=== PATIENT | female | born 1955 | race Caucasian/White ===

== ENCOUNTER 2017-06-28 12:48 | Emergency (ER) | payer MEDICAID ==
[~2017-06-28] VITALS: Ht 167.6 cm; Wt 83.0 kg
[~2017-06-28 12:48] MED LIST: NAPR500 PO; SYMB160A INH; XANA0.5T PO
[2017-06-28 12:57] VITALS: BP 125/76; PULSE 97; RESP 16; TEMP 98; O2SAT 98
[2017-06-28] MEDS ORDERED: ALPR.5 PO (13:12)
[2017-06-28] MEDS ORDERED: METF500T PO (13:12)
[2017-06-28] MEDS ORDERED: SYMB80AE INH (13:12)
[2017-06-28] MEDS ORDERED: ALBU1AER5 INH (13:12)
[2017-06-28] MEDS ORDERED: SUMA50TA2 PO (13:12)
--- NOTE | 2017-06-28 14:33 | PD ---
HPI . Left eyelid swelling Chief Complaint: Skin Problem Time Seen by Provider: 13:54 Travel History International Travel<30 days: No Contact w/Intl Traveler<30days: No Traveled to known affect area: No History of Present Illness HPI 62-year-old female presents emergency department for evaluation of a left eyelid swelling and irritation 6 days. Patient states she has been using warm moist heat to the area. The problem is persistent now. Patient denies any visual disturbances with this problem. Patient's only major medical history of asthma and diabetes. She takes metformin, Xanax and Pro Air daily. Patient denies any fevers, chills, malaise, shortness breath, chest pain, nausea, vomiting, diarrhea, abdominal pain. PFSH Past Medical History Asthma: Yes Anxiety: Yes Cancer: Yes (uterine cancer hx) Diabetes: Yes Patient Takes Glucophage: No Diminished Hearing: No Respiratory: Yes (ASTHMA) Migraines: Yes Tetanus Vaccination: Unknown Influenza Vaccination: Yes ?: Not Past Surgical History Abdominal Surgery: Yes (hernia repair) Gynecologic Surgery: Yes (cervix cryo) Hysterectomy: Yes Social History Alcohol Use: Yes (occ) Tobacco Use: No Substance Use: No Allergies-Medications (Allergen,Severity, Reaction): Coded Allergies: iodine (Unverified Allergy, Severe, CARDIAC ARREST, 06/28/17) penicillin G (Unverified Allergy, Severe, SOB, 06/28/17) potassium iodide (Unverified Allergy, Severe, CARDIAC ARREST, 06/28/17) povidone-iodine (Unverified Allergy, Severe, CARDIAC ARREST, 06/28/17) sodium iodide (Unverified Allergy, Severe, CARDIAC ARREST, 06/28/17) sodium iodide (Unverified Allergy, Severe, CARDIAC ARREST, 06/28/17) Reported Meds & Prescriptions Reported Meds & Active Scripts Active Reported Symbicort Inh (Budesonide/Formoterol Fumarate) 80-4.5 Mcg/Act Aero 2 Puff INH Q12HR Sumatriptan (Sumatriptan Succinate) 50 Mg Tab 50 Mg PO ONCE PRN If a satisfactory response has not been obtained at 2 hours, a second dose may be administered Proair Respiclick Inh (Albuterol Sulfate) 90 Mcg/Act Aerp 2 Puff INH Q6H PRN Metformin (Metformin HCl) 500 Mg Tab 500 Mg PO BIDPC Xanax (Alprazolam) 0.5 Mg Tab 0.5 Mg PO Q6H PRN Review of Systems Except as stated in HPI: all other systems reviewed are Neg Physical Exam Narrative GENERAL: Well-nourished, well-developed 62-year-old female patient in no acute distress. Nontoxic-appearing. SKIN: Focused skin assessment warm/dry. HEAD: Normocephalic. Traumatic. EYES: Mild erythema and edema noted to the medial aspect of the left upper eyelid. No scleral icterus. No injection or drainage. No visual disturbances. NECK: Supple, trachea midline. No JVD or lymphadenopathy. CARDIOVASCULAR: Regular rate and rhythm without murmurs, gallops, or rubs. RESPIRATORY: Breath sounds equal bilaterally. No accessory muscle use. GASTROINTESTINAL: Abdomen soft, non-tender, nondistended. MUSCULOSKELETAL: No cyanosis, or edema. Data Data Last Documented VS Vital Signs Date Time Temp Pulse Resp B/P (MAP) Pulse Ox O2 Delivery O2 Flow Rate FiO2 06/28/17 12:57 98.0 97 16 125/76 (92) 98 Orders Orders Ed Discharge Order (06/28/17 14:33) MDM Medical Decision Making Medical Screen Exam Complete: Yes Emergency Medical Condition: Yes Differential Diagnosis Differential diagnoses include but not limited to hordeolum, chalazion, blepharitis Narrative Course 62-year-old female presents to the emergency department for evaluation of left upper eyelid mild redness and edema that is described as painful irritation. Patient denies any fevers, chills, malaise, shortness breath, chest pain, visual disturbances. States that she has had this area of irritation for 6 days. Patient is been using warm moist compresses. The area of erythema and edema is very mild and localized. Patient reassured that this condition is usually self-limiting and to continue using the warm moist compresses and she can also use ibuprofen to help with the pain and swelling. Patient given an ibuprofen at our facility. Patient discharged home with instructions to follow up with cash van salesperson if the symptoms persist but otherwise return to the emergency Department with any worsening condition. Patient's understands and is thankful for care. Diagnosis Primary Impression: Hordeolum externum left upper eyelid Referrals: [facility] Patient Instructions: General Instructions, Marlena (ED) Additional Instructions: Please return to emergency department if your symptoms return or worsen. Follow up with your primary care provider. Follow-up with cash van salesperson if symptoms persist. May take ibuprofen to help reduce swelling Warm moist compresses to area Disposition: 01 DISCHARGE HOME Condition: Stable Kayla Tinoco Jun 28, 2017 14:33
== END 2017-06-28 15:06 | disposition home or self-care (01) ==
LOC: PHEFT 12:48
DX: H00.014 Hordeolum externum left upper eyelid (principal); E11.9 Type 2 diabetes mellitus without complications; Z79.84 Long term (current) use of oral hypoglycemic drugs
CPT/HCPCS: 99282

== ENCOUNTER 2017-07-23 11:33 | Emergency (ER) | payer MEDICAID ==
[~2017-07-23] VITALS: Ht 167.6 cm; Wt 80.0 kg
[~2017-07-23 11:33] MED LIST changes: +ALBU1AER5 INH; +ALPR.5 PO; +METF500T PO; -NAPR500 PO; +SUMA50TA2 PO; -SYMB160A INH; +SYMB80AE INH; -XANA0.5T PO
[2017-07-23 11:34] VITALS: BP 124/69; PULSE 87; RESP 18; TEMP 98.2; O2SAT 97
--- NOTE | 2017-07-23 12:49 | PD ---
HPI Chief Complaint: Pain: Acute or Chronic Time Seen by Provider: 12:37 Travel History International Travel<30 days: No Contact w/Intl Traveler<30days: No Traveled to known affect area: No History of Present Illness HPI [id number] female presents to emergency Department with complaint of left groin pain 6 months with worsening times one month and much more worsening times one week. Denies injury or heavy lifting. He radiates down the left leg to the thigh area. Has history of hernia repair bilaterally. Denies dysuria, change in stool, fever, vomiting, abdominal pain. Has been taking ibuprofen for symptom management. Pain is worse with walking, bending over, moving. Rates pain 6/10. Describes pain as a throbbing and burning sensation. Primary care provider is Dr. Victor in [place]. Allergies to penicillin and iodine. History of asthma and diabetes mellitus. No other medical complaints. No other modifying factors or associated signs and symptoms. PFSH Past Medical History Asthma: Yes Anxiety: Yes Cancer: Yes (uterine cancer hx) Diabetes: Yes Diminished Hearing: No Respiratory: Yes Migraines: Yes Past Surgical History Abdominal Surgery: Yes (hernia repair) Gynecologic Surgery: Yes (cervix cryo) Hysterectomy: Yes Social History Alcohol Use: Yes (occ) Tobacco Use: No Substance Use: No Allergies-Medications (Allergen,Severity, Reaction): Coded Allergies: iodine (Unverified Allergy, Severe, CARDIAC ARREST, 07/23/17) penicillin G (Unverified Allergy, Severe, SOB, 07/23/17) potassium iodide (Unverified Allergy, Severe, CARDIAC ARREST, 07/23/17) povidone-iodine (Unverified Allergy, Severe, CARDIAC ARREST, 07/23/17) sodium iodide (Unverified Allergy, Severe, CARDIAC ARREST, 07/23/17) sodium iodide (Unverified Allergy, Severe, CARDIAC ARREST, 07/23/17) Reported Meds & Prescriptions Reported Meds & Active Scripts Active [place] (Hydrocodone-Acetaminophen) 5 Mg-325 Mg Tab 1 Tab PO Q6H PRN Reported Symbicort Inh (Budesonide/Formoterol Fumarate) 80-4.5 Mcg/Act Aero 2 Puff INH Q12HR Sumatriptan (Sumatriptan Succinate) 50 Mg Tab 50 Mg PO ONCE PRN If a satisfactory response has not been obtained at 2 hours, a second dose may be administered Proair Respiclick Inh (Albuterol Sulfate) 90 Mcg/Act Aerp 2 Puff INH Q6H PRN Metformin (Metformin HCl) 500 Mg Tab 500 Mg PO BIDPC Xanax (Alprazolam) 0.5 Mg Tab 0.5 Mg PO Q6H PRN Review of Systems Except as stated in HPI: all other systems reviewed are Neg Physical Exam Narrative GENERAL: Well-nourished, well-developed female patient, in no acute distress; afebrile, nontoxic-appearing SKIN: Warm and dry. HEAD: Atraumatic. Normocephalic. EYES: Pupils equal and round. No scleral icterus. No injection or drainage. ENT: Mucosa pink and moist. Airway patent. NECK: Trachea midline. CARDIOVASCULAR: Regular rate and rhythm. No murmur appreciated. RESPIRATORY: No accessory muscle use. Clear to auscultation. Breath sounds equal bilaterally. No retractions or tachypnea. GASTROINTESTINAL: Abdomen soft, non-tender, nondistended. Hepatic and splenic margins not palpable. Bowel sounds are active 4 quadrants. Left pelvic region without palpable mass when lying flat or standing; the area is tender to palpation; without erythema or edema. No lymphadenopathy. MUSCULOSKELETAL: No obvious deformities. No clubbing. No cyanosis. No edema. NEUROLOGICAL: Awake and alert. Oriented 3. No obvious cranial nerve deficits. Motor grossly within normal limits. Normal speech. PSYCHIATRIC: Appropriate mood and affect; insight and judgment normal. Data Data Last Documented VS Vital Signs Date Time Temp Pulse Resp B/P (MAP) Pulse Ox O2 Delivery O2 Flow Rate FiO2 07/23/17 14:18 85 18 128/61 (83) 100 Room Air 07/23/17 11:34 98.2 Orders Orders Morphine Inj (Morphine Inj) (07/23/17 13:00) Complete Blood Count With Diff (07/23/17 12:58) Comprehensive Metabolic Panel (07/23/17 12:58) Urinalysis - C+S If Indicated (07/23/17 12:58) Iv Access Insert/Monitor (07/23/17 12:58) Morphine Inj (Morphine Inj) (07/23/17 13:00) Ondansetron Inj (Zofran Inj) (07/23/17 13:00) Sodium Chlor 0.9% 1000 Ml Inj (Ns 1000 M (07/23/17 12:58) Sodium Chloride 0.9% Flush (Ns Flush) (07/23/17 13:00) Ct Pelvis W/O Iv Contrast (07/23/17 ) Ed Discharge Order (07/23/17 14:42) Labs Laboratory Tests Test 07/23/17 13:09 White Blood Count 6.5 TH/MM3 Red Blood Count 4.47 MIL/MM3 Hemoglobin 13.3 GM/DL Hematocrit 40.5 % Mean Corpuscular Volume 90.7 FL Mean Corpuscular Hemoglobin 29.7 PG Mean Corpuscular Hemoglobin Concent 32.8 % Red Cell Distribution Width 14.3 % Platelet Count 321 TH/MM3 Mean Platelet Volume 8.5 FL Neutrophils (%) (Auto) 47.9 % Lymphocytes (%) (Auto) 40.8 % Monocytes (%) (Auto) 8.0 % Eosinophils (%) (Auto) 2.6 % Basophils (%) (Auto) 0.7 % Neutrophils # (Auto) 3.1 TH/MM3 Lymphocytes # (Auto) 2.7 TH/MM3 Monocytes # (Auto) 0.5 TH/MM3 Eosinophils # (Auto) 0.2 TH/MM3 Basophils # (Auto) 0.0 TH/MM3 CBC Comment DIFF FINAL Differential Comment Urine Color YELLOW Urine Turbidity HAZY Urine pH 5.5 Urine Specific [place] 1.020 Urine Protein NEG mg/dL Urine Glucose (UA) NEG mg/dL Urine Ketones NEG mg/dL Urine Occult Blood NEG Urine Nitrite NEG Urine Bilirubin NEG Urine Urobilinogen LESS THAN 2.0 MG/DL Urine Leukocyte Esterase TRACE Urine RBC 1 /hpf Urine WBC 4 /hpf Urine Squamous Epithelial Cells 9 /hpf Urine Bacteria OCC /hpf Urine Hyaline Casts 1 /lpf Urine Mucus FEW /lpf Microscopic Urinalysis Comment CULT NOT INDICATED Blood Urea Nitrogen 18 MG/DL Creatinine 0.79 MG/DL Random Glucose 75 MG/DL Total Protein 7.3 GM/DL Albumin 3.6 GM/DL Calcium Level 9.0 MG/DL Alkaline Phosphatase 88 U/L Aspartate Amino Transf (AST/SGOT) 15 U/L Alanine Aminotransferase (ALT/SGPT) 18 U/L Total Bilirubin 0.3 MG/DL Sodium Level 139 MEQ/L Potassium Level 4.3 MEQ/L Chloride Level 108 MEQ/L Carbon Dioxide Level 26.3 MEQ/L Anion Gap 5 MEQ/L Estimat Glomerular Filtration Rate 74 ML/MIN MDM Medical Decision Making Medical Screen Exam Complete: Yes Emergency Medical Condition: Yes Medical Record Reviewed: Yes Differential Diagnosis Inguinal hernia, incarcerated hernia, groin strain Narrative Course 62-year-old female with left groin pain. History of bilateral hernia repair. I 'm unable to palpate or visualize a hernia with the patient in lying down or standing up position. Dr. La evaluated the patient and recommends CBC, CMP, CT pelvis. Orders entered. IV, morphine, Zofran, fluid bolus ordered. 1434: CBC, CMP unremarkable. Urinalysis without signs of infection. CT pelvis concludes: Pelvis CT 07/23/17 0000 Signed Impressions: Service Date/Time: Sunday, July 23, 2017 13:42 - CONCLUSION: 1. Unremarkable CT examination of the pelvis. Specifically, no evidence for incarcerated inguinal hernia, adenopathy or mass. Hesham Colvin MD Lab results and CT scan findings discussed with the patient. [place] prescribed for home. Instructed patient to follow up with primary care provider. Patient verbalizes understanding and agreement with treatment plan. Patient is medically cleared and stable for discharge. Discussed reasons to return to the emergency department. Patient agrees with treatment plan. The patients vital signs are stable and the patient is stable for outpatient follow-up and treatment. Patient discharged home, stable and in no acute distress. Diagnosis Primary Impression: Left groin pain Referrals: Primary Care Physician Patient Instructions: General Instructions, Groin Pain (ED) Additional Instructions: Pain medication as prescribed and as needed; do not drink alcohol or drive while taking the medication Avoid aggravating activity Ice/heat to affected area as needed to decrease pain and inflammation\ Follow-up with primary care provider Return to the emergency department immediately with worsening of symptoms Med/Other Pt SpecificInfo: Prescription(s) given Scripts Hydrocodone-Acetaminophen ([place]) 5 Mg-325 Mg Tab 1 TAB PO Q6H Y for PAIN, #12 TAB 0 Refills Prov: Tarah Cornelius 07/23/17 Disposition: 01 DISCHARGE HOME Condition: Stable Tarha Cornelius Jul 23, 2017 12:49
[2017-07-23] MEDS ORDERED: SODIUM CHLOR 0.9% 1000 ML INJ 1,000 ML IV SCH (12:58)
[2017-07-23] MEDS ORDERED: MORPHINE SULFATE 4 MG/ML INJ IV PUSH ONE (13:00)
[2017-07-23] MEDS ORDERED: MORPHINE SULFATE 4 MG/ML INJ IM ONE (13:00)
[2017-07-23] MEDS ORDERED: ONDANSETRON HCL 4 MG/2 ML VIAL IVP ONE (13:00)
[2017-07-23] MEDS ORDERED: SODIUM CHLORIDE 0.9% FLUSH 10 ML FLUSH IV FLUSH PRN (13:00)
[2017-07-23 13:17] VITALS: BP 126/81
[2017-07-23 13:32] LABS: AUTOMATED NEUTROPHIL # 3.1 TH/MM3 (1.8-7.7); BASOPHIL % 0.7 % (0.0-2.0); EOSINOPHIL # 0.2 TH/MM3 (0-0.4); EOSINOPHIL % 2.6 % (0.0-4.0); HEMATOCRIT 40.5 % (35.0-46.0); HEMO FLAGS DIFF FINAL; LYMPH % 40.8 % (9.0-44.0); LYMPHOCYTE # 2.7 TH/MM3 (1.0-4.8); MEAN CELL VOLUME 90.7 FL (80.0-100.0); MEAN CORPUSCULAR HEMOGLOBIN 29.7 PG (27.0-34.0); MEAN CORPUSCULAR HGB CONC 32.8 % (32.0-36.0); NEUT % 47.9 % (16.0-70.0); PLATELET COUNT 321 TH/MM3 (150-450); RED BLOOD COUNT 4.47 MIL/MM3 (4.00-5.30); RED CELL DISTRIBUTION WIDTH 14.3 % (11.6-17.2); WHITE BLOOD COUNT 6.5 TH/MM3 (4.0-11.0)
[2017-07-23 13:36] LABS: BACTERIA, URINE OCC /hpf; BLOOD, URINE NEG (NEG); COMMENT (UR) CULT NOT INDICATED; CULTURE IF INDICATED CULT NOT INDICATED; GLUCOSE,URINE NEG (NEG); HYALINE CAST, URINE 1 /lpf (RARE); KETONE, URINE NEG (NEG); MUCUS URINE FEW /lpf (OCC); NITRITE,URINE NEG (NEG); PH, URINE 5.5 (5.0-8.5); SQUAMOUS EPITHELIAL CELL URINE 9 /hpf (0-5); URINE COLOR YELLOW (YELLW/STRAW)
[2017-07-23 13:48] LABS: ALT (GPT) 18 U/L (10-53); ANION GAP 5 MEQ/L (5-15); AST (GOT) 15 U/L (15-37); BICARBONATE 26.3 MEQ/L (21.0-32.0); BLOOD UREA NITROGEN 18 MG/DL (7-18); CHLORIDE 108 MEQ/L (98-107); GLOMERULAR FILTRATION RATE 74 ML/MIN (>89); POTASSIUM 4.3 MEQ/L (3.5-5.1); SODIUM (NA) 139 MEQ/L (136-145)
[2017-07-23 13:50] LABS: ALKALINE PHOSPHATASE 88 U/L (45-117); TOTAL BILIRUBIN ADULT 0.3 MG/DL (0.2-1.0)
[2017-07-23 14:18] VITALS: BP 128/61; PULSE 85; RESP 18; O2SAT 100
--- NOTE | 2017-07-23 14:20 | RADRPT ---
EXAM DATE/TIME: 07/23/2017 13:42 [facility] COMPARISON: No previous studies available for comparison. INDICATIONS : Left groin pain for one week. ORAL CONTRAST: No oral contrast ingested. RADIATION DOSE: 15.32 CTDIvol (mGy) MEDICAL HISTORY : Hernia, inguinal. uterine cancer, diabetes SURGICAL HISTORY : Hysterectomy. ENCOUNTER: Initial ACUITY: 1 week PAIN SCALE: 7/10 LOCATION: Left groin TECHNIQUE: Volumetric scanning of the pelvis was performed. Using automated exposure control and adjustment of the mA and/or kV according to patient size, radiation dose was kept as low as reasonably achievable t o obtain optimal diagnostic quality images. DICOM format image data is available electronically for review and comparison. FINDINGS: BOWEL/MESENTERY: The visualized small and large bowel demonstrate no acute abnormality. There is no free fluid. BLADDER: There is no wall thickening or mass. RETROPERITONEUM: There is no aneurysm or lymphadenopathy. REPRODUCTIVE: Within normal limits. INGUINAL: There is no lymphadenopathy or hernia. MUSCULOSKELETAL: Within normal limits for patient age. CONCLUSION: 1. Unremarkable CT examination of the pelvis. Specifically, no evidence for incarcerated inguinal her tressa, adenopathy or mass. Hesham Colvin MD on July 23, 2017 at 14:16 Board Certified Radiologist. This report was verified electronically.
[2017-07-23] MEDS ORDERED: NORC5TAB PO (14:36)
== END 2017-07-23 14:47 | disposition home or self-care (01) ==
LOC: NEPD 11:33
DX: R10.9 Unspecified abdominal pain (principal); J45.909 Unspecified asthma, uncomplicated; E11.9 Type 2 diabetes mellitus without complications; F41.9 Anxiety disorder, unspecified; Z88.0 Allergy status to penicillin
CPT/HCPCS: 72192; 80053; 81001; 85025; 96361; 96374; 96375; 99285; J2270; J2405; J7030